=== PATIENT | male | born 2000 | race Caucasian/White ===

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

== ENCOUNTER 2024-08-17 19:28 | Emergency (ER) | payer SELFPAY ==
[~2024-08-17] VITALS: Ht 175.3 cm; Wt 114.5 kg
[2024-08-17 19:46] VITALS: O2SAT 98
[2024-08-18 01:03] VITALS: BP 149/95; PULSE 77; RESP 16; TEMP 36.7; O2SAT 100
== END 2024-08-18 01:10 | disposition home or self-care (01) ==
LOC: ER 19:28
DX: M79.603 Pain in arm, unspecified (principal)
CPT/HCPCS: 29105; 99283